=== PATIENT | female | born 1990 | race African-American/Black ===

== ENCOUNTER 2018-03-21 19:39 | Emergency (ER) | payer SELFPAY ==
[~2018-03-21] VITALS: Ht 154.9 cm; Wt 55.0 kg
[2018-03-21 20:02] VITALS: BP 120/72
[2018-03-21] MEDS ORDERED: HYDROCODONE/ACETAMINOPHEN 5/325MG TABLET PO ONE (23:30)
== END 2018-03-22 03:27 | disposition home or self-care (01) ==
LOC: ER 19:39
DX: S62.102A Fracture of unspecified carpal bone, left wrist, initial encounter for closed fracture (principal); V48.1XXA Car passenger injured in noncollision transport accident in nontraffic accident, initial encounter; W22.10XA Striking against or struck by unspecified automobile airbag, initial encounter; Y93.89 Activity, other specified; Y92.89 Other specified places as the place of occurrence of the external cause; Y99.8 Other external cause status
CPT/HCPCS: 29125; 72100; 73090; 73110; 73130; 73630; 81025; 99284; A4565